=== PATIENT | female | born 1970 | race Caucasian/White ===

== ENCOUNTER → 2024-06-09 14:06 | Outpatient (CLI) | payer OTHER, SELFPAY ==
[2024-06-09 18:55] LABS: Add Manual Diff / Slide Review NO; Basophils Absolute Auto 0 /uL (0-100); Basophils Percent Auto 0.4 % (0-2); Eosinophils Absolute Auto 200 /uL (0-450); Eosinophils Percent Auto 3.9 % (2-4); Hematocrit 40.3 % (36-46); Hemoglobin 13.4 g/dL (12.0-16.0); Lymphocytes Absolute Auto 1300 /uL (1100-4500); Lymphocytes Percent Auto 29.6 % (25-40); Mean Corpuscular HGB Conc 33.2 % (30-36); Mean Corpuscular Hemoglobin 28.5 PG (26-34); Mean Corpuscular Volume 85.7 fL (80-100); Monocytes Absolute Auto 200 /uL (0-900); Monocytes Percent Auto 4.9 % (3-14); Neutrophils Absolute Auto 2700 /uL (1500-7000); Neutrophils Percent Auto 61.2 % (50-75); Platelet Count 272 X10^3/uL (150-400); Red Cell Distribution Width 14.8 % (11.6-14.8); White Blood Cell Count 4.4 X10^3/uL (4.5-11.0)
[2024-06-09 19:03] LABS: Alanine Aminotransferase 30 IU/L (<35); Albumin 4.7 g/dL (3.5-5.0); Albumin Globulin Ratio 1.5 (1.0-2.8); Alkaline Phosphatase 100 U/L (38-126); Aspartate Aminotransferase 51 IU/L (14-36); BUN Creatinine Ratio 15.8 (6-22); Bilirubin Total 0.5 mg/dL (0.2-1.3); Blood Urea Nitrogen 15 mg/dL (7-17); Calcium 9.5 mg/dL (8.4-10.2); Carbon Dioxide 25 mmol/L (22-32); Chloride 108 mmol/L (98-107); Cholesterol 254 mg/dL (140-199); Estimated Glomerular Filt Rate > 60 mL/min (>60); Globulin 3.1 g/dL (1.7-4.1); Glucose 87 mg/dL (70-100); HDL Cholesterol 64 mg/dL (40-60); HEMOLYSIS 16 (0-50); LDL Cholesterol Calculated 166 mg/dL (<100); Potassium 4.2 mmol/L (3.4-5.1); Sodium 141 mmol/L (137-145); Total Protein 7.8 g/dL (6.3-8.2); Triglycerides 122 mg/dL (35-150)
[2024-06-09 19:12] LABS: Hemoglobin A1C% w Est Avg Glu 5.2 % (4.0-6.0)
[2024-06-09 19:28] LABS: Thyroid Stimulating Hormone 1.54 uIU/mL (0.47-4.68)
[2024-06-09 19:36] LABS: Estradiol, Total 13.9 pg/mL
[2024-06-16 04:11] LABS: Anti Mullerian Hormone <0.015 ng/mL (.)
== END ==
PROVIDERS: PCP Family Medicine; Visit Provider Family Medicine
DX: Z13.6 Encounter for screening for cardiovascular disorders (principal); Z13.29 Encounter for screening for other suspected endocrine disorder; Z13.0 Encounter for screening for diseases of the blood and blood-forming organs and certain disorders involving the immune mechanism; N95.1 Menopausal and female climacteric states
CPT/HCPCS: 80053; 80061; 82397; 82670; 83001; 83036; 84443; 85025

== ENCOUNTER → 2024-11-03 13:47 | Outpatient (CLI) | payer OTHER, SELFPAY ==
[2024-11-03 20:05] LABS: HEMOLYSIS 23 (0-50); Iron 59 ug/dL (37-170)
[2024-11-03 20:07] LABS: Alanine Aminotransferase 19 IU/L (<35); Albumin 4.7 g/dL (3.5-5.0); Albumin Globulin Ratio 1.7 (1.0-2.8); Alkaline Phosphatase 85 U/L (38-126); Aspartate Aminotransferase 27 IU/L (14-36); Bilirubin Total 0.7 mg/dL (0.2-1.3); Bilirubin Unconjugated 0.4 mg/dL (0.0-1.1); Globulin 2.7 g/dL (1.7-4.1); HEMOLYSIS 34 (0-50); Total Protein 7.4 g/dL (6.3-8.2)
[2024-11-03 20:20] LABS: Percent Iron Saturation 20 % (15-50); Total Iron Binding Capacity 300 ug/dL (265-497); Transferrin 260 mg/dL (206-381)
[2024-11-03 20:37] LABS: Ferritin 109 ng/mL (11-264)
[2024-11-05 04:12] LABS: Ceruloplasmin 21.1 mg/dL (19.0-39.0)
[2024-11-05 20:36] LABS: HBsAg Screen Negative (Negative); Hepatitis A Antibody IgM Negative (Negative); Hepatitis B Core Antibody IgM Negative (Negative); Hepatitis C Antibody Non Reactive (Non Reactive)
[2024-11-09 07:40] LABS: ANA Screen, IFA Negative (.)
== END ==
PROVIDERS: PCP Family Medicine; Visit Provider Family Medicine
DX: R79.89 Other specified abnormal findings of blood chemistry (principal)
CPT/HCPCS: 80074; 80076; 82390; 82728; 83540; 83550; 86038